=== PATIENT | female | born 1940 | race Caucasian/White ===

== ENCOUNTER 2018-04-20 19:53 | Emergency (ER) | payer MEDICARE, OTHER ==
[~2018-04-20] VITALS: Ht 165.1 cm; Wt 68.0 kg
[2018-04-20] MEDS ORDERED: ACETAMINOPHEN 325 MG TAB PO ONE (22:00)
--- NOTE | 2018-04-20 22:10 | Diagnostic Imaging Report ---
HIP 2 VIEW LT - HOPD HISTORY: Left hip pain COMPARISON: None FINDINGS: Bones: Patient is status post total left hip replacement with no evidence of hardware failure or loosening. Diffuse demineralization. No displaced fracture. Osseous alignment is within normal limits. Joints: The joint spaces are well-maintained. Soft tissues: The soft tissues appear unremarkable. IMPRESSION: No acute radiographic abnormality. Signed by: Dr. Bear Osborne M.D. on 04/20/2018 10:07 PM
--- NOTE | 2018-04-20 22:12 | Diagnostic Imaging Report ---
SHOULDER 2+VW LT -HOPD HISTORY: Left shoulder pain COMPARISON: None FINDINGS: Bones: No displaced fracture. Osseous alignment is within normal limits. Joints: There is moderate degenerative changes of the left acromioclavicular and severe changes of the glenohumeral joint with subchondral sclerosis and subchondral cystic changes. There is narrowing of the acromiohumeral interval Soft tissues: The soft tissues appear unremarkable. IMPRESSION: 1. No acute radiographic abnormality. 2. 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 Signed by: Dr. Bear Osborne M.D. on 04/20/2018 10:08 PM
--- NOTE | 2018-04-20 22:41 | Diagnostic Imaging Report ---
EXAMINATION: RIBS UNILAT W/CXR- HOPD INDICATION: Left side chest pain, rib pain. COMPARISON: None FINDINGS: TUBES and LINES: Cervical spine fusion status post laminectomies. Wiring overlying the mid abdomen most likely from spinal decompression of the upper lumbar spine LUNGS: Lungs are well inflated. Lungs are clear. There is no evidence of pneumonia or pulmonary edema. PLEURA: No pleural effusion or pneumothorax. HEART AND MEDIASTINUM: The cardiomediastinal silhouette is unremarkable. BONES AND SOFT TISSUES: No acute osseous lesion. Evidence of prior vertebroplasty at T12 and cervical and lumbar laminectomies Soft tissues are unremarkable. UPPER ABDOMEN: No free air under the diaphragm. IMPRESSION: No acute thoracic abnormality. Signed by: Dr. Bear Osborne M.D. on 04/20/2018 10:38 PM
[2018-04-20] MEDS ORDERED: CLONIDINE HCL 0.1 MG TAB PO ONE (22:45)
== END 2018-04-20 23:22 | disposition home or self-care (01) ==
LOC: FSED 19:53
DX: M25.512 Pain in left shoulder (principal); S40.012A Contusion of left shoulder, initial encounter; S20.212A Contusion of left front wall of thorax, initial encounter; S51.802A Unspecified open wound of left forearm, initial encounter; W01.0XXA Fall on same level from slipping, tripping and stumbling without subsequent striking against object, initial encounter; Y93.01 Activity, walking, marching and hiking; Y92.008 Other place in unspecified non-institutional (private) residence as the place of occurrence of the external cause; I10 Essential (primary) hypertension
CPT/HCPCS: 71101; 81003; 99283

== ENCOUNTER 2018-11-27 19:53 | Emergency (ER) | payer MEDICARE ==
[~2018-11-27] VITALS: Ht 165.1 cm; Wt 68.0 kg
--- OUTSIDE RECORDS SUMMARY | 2018-11-27 19:57 | XMS REPORT ---
Author Author [facility] Address Unknown Phone Unavailable Care Team Providers Care Rn Urgent Care Name Role Phone Dejan TYSON Unavailable Unavailable Problems This patient has no known problems. Allergies, Adverse Reactions, Alerts This patient has no known allergies or adverse reactions. Medications This patient has no known medications. Results Test Description Test Time Test Comments Text Results Atomic Results Result Comments RIBS UNILAT W/CXR- HOPD 2018-04-20 22:36:00 [facility] [address] [place] [address] Patient Name: VANDANA AMANDA MR #: [id number] : 1940 Age/Sex: 78/F Req #: [id number] Adm Physician: Ordered by: JONNATHAN TYSON MD Report #: [id number] Location: [facility] [place] Room/Bed: Procedure: [id number] HOPD/RIBS UNILAT W/CXR- HOPD Exam Date: 04/20/18 Exam Time: 2124 REPORT STATUS: Signed EXAMINATION: RIBS UNILAT W/CXR- HOPD INDICATION: Left side chest pain, rib pain. COMPARISON: None FINDINGS: TUBES and LINES: Cervical spine fusion status post laminectomies. Wiring overlying the mid abdomen most likely from spinal decompression of the upper lumbar spine LUNGS: Lungs are well inflated. Lungs are clear. There is no evidence of pneumonia or pulmonary edema. PLEURA: No pleural effusion or pneumothorax. HEART AND MEDIASTINUM: The cardiomediastinal silhouette is unremarkable. BONES AND SOFT TISSUES: No acute osseous lesion. Evidence of prior vertebroplasty at T12 and cervical and lumbar laminectomies Soft tissues are unremarkable. UPPER ABDOMEN: No free air under the diaphragm. IMPRESSION: No acute thoracic abnormality. Signed by: Dr. Bear Osborne M.D. on 04/20/2018 10:38 PM Dictated By: BEAR RUSSO MD 37 Transcribed By: TAJ on 04/20/182237 COPY TO: JONNATHAN TYSON MD SHOULDER 2+VW LT -HOPD 2018-04-20 22:07:00 [place] [address] Patient Name: VANDANA AMANDA MR #: [id number] : 1940 Age/Sex: 78/F Req #: [id number] Adm Physician: Ordered by: JONNATHAN TYSON MD Report #: [id number] Location: [facility] [place] Room/Bed: Procedure: [id number] HOPD/SHOULDER 2+VW LT -HOPD Exam Date: 04/20/18 Exam Time: 2134 REPORT STATUS: Signed SHOULDER 2+VW LT -HOPD HISTORY: Left shoulder pain COMPARISON: None FINDINGS: Bones: No displaced fracture. Osseous alignment is within normal limits. Joints: There is moderate degenerative changes of the left acromioclavicular and severe changes of the glenohumeral joint with subchondral sclerosis and subchondral cystic changes. There is narrowing of the acromiohumeral interval Soft tissues: The soft tissues appear unremarkable. IMPRESSION: 1. No acute radiographic abnormality. 2. 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 Signed by: Dr. Bear Osborne M.D. on 04/20/2018 10:08 PM Dictated By: BEAR RUSSO MD 07 Transcribed By: TAJ on 04/20/182207 COPY TO: JONNATHAN TYSON MD HIP 2 VIEW LT - HOPD 2018-04-20 22:07:00 [place] [address] Patient Name: VANDANA AMANDA MR #: [id number] : 1940 Age/Sex: 78/F Req #: [id number] Adm Physician: Ordered by: JONNATHAN TYSON MD Report #: [id number] Location: [facility] [place] Room/Bed: Procedure: [id number] HOPD/HIP 2 VIEW LT - HOPD Exam Date: 04/20/18 Exam Time: 2109 REPORT STATUS: Signed HIP 2 VIEW LT - HOPD HISTORY: Left hip pain COMPARISON: None FINDINGS: Bones: Patient is status post total left hip replacement with no evidence of hardware failure or loosening. Diffuse demineralization. No displaced fracture. Osseous alignment is within normal limits. Joints: The joint spaces are well-maintained. Soft tissues: The soft tissues appear unremarkable. IMPRESSION: No acute radiographic abnormality. Signed by: Dr. Bear Osborne M.D. on 04/20/2018 10:07 PM Dictated By: BEAR RUSSO MD 06 Transcribed By: TAJ on 04/20/182206 COPY TO: JONNATHAN TYSON MD
[2018-11-27] MEDS ORDERED: ALBUTEROL/IPRATROPIUM 3 ML NEB NEB ONE (20:45)
[2018-11-27] MEDS ORDERED: PREDNISONE 20 MG TAB PO ONE (20:45)
[2018-11-27] MEDS ORDERED: PROAIR HFA INH8.5 GM INH (22:02)
[2018-11-27] MEDS ORDERED: DOXYCYCLINE MO100 MG PO (22:04)
[2018-11-27] MEDS ORDERED: PREDNISONE20 MG PO (22:05)
== END 2018-11-27 22:20 | disposition home or self-care (01) ==
LOC: FSED 19:53
DX: J20.9 Acute bronchitis, unspecified (principal); I10 Essential (primary) hypertension; M54.5 Low back pain; G89.29 Other chronic pain
CPT/HCPCS: 99283; J7512

== ENCOUNTER 2019-07-19 16:15 | Emergency (ER) | payer MEDICARE ==
[~2019-07-19] VITALS: Ht 162.6 cm; Wt 54.1 kg
[~2019-07-19 16:15] MED LIST: DOXYCYCLINE MO100 MG PO; PREDNISONE20 MG PO; PROAIR HFA INH8.5 GM INH
[2019-07-19] MEDS ORDERED: SODIUM CHLORIDE 0.9% 50ML 50 ML ONE (16:29)
[2019-07-19] MEDS ORDERED: IOPAMIDOL 370 MG/ML 200 ML INFUS..BTL INJ ONE (16:29)
[2019-07-19] MEDS ORDERED: ONDANSETRON HCL INJ 2MG/ML 2ML 2 MG/ML VIAL IV STA (16:55)
[2019-07-19] MEDS ORDERED: ONDANSETRON HCL INJ 2MG/ML 2ML 2 MG/ML VIAL ONE (17:03)
--- NOTE | 2019-07-19 18:21 | Diagnostic Imaging Report ---
EXAM: CT Abdomen and Pelvis WITH contrast INDICATION: Abdominal pain. Diarrhea. COMPARISON: None. TECHNIQUE: Abdomen and pelvis were scanned utilizing a multidetector helical scanner from the lung base to the pubic symphysis after administration of IV contrast. Coronal and sagittal reformations were obtained. Routine protocol was performed. Scan was performed when during portal venous phase. IV CONTRAST: 100 cc Isovue-300 ORAL CONTRAST: Water RADIATION DOSE: Total DLP: 462.62 mGy*cm Estimated effective dose: (DLP x 0.015 x size factor) mSv COMPLICATIONS: None FINDINGS: LINES and TUBES: None. LOWER THORAX: Unremarkable HEPATOBILIARY: No focal hepatic lesions. Diffuse pneumobilia. GALLBLADDER: Not visualized. SPLEEN: No splenomegaly. PANCREAS: No focal masses or ductal dilatation. ADRENALS: No adrenal nodules KIDNEYS/URETERS: Kidneys enhance symmetrically. No hydronephrosis. Parapelvic cyst in the interpolar region of the left kidney measuring 4.1 cm. There is also a 1.7 cm low-attenuation lesion in the upper pole of the right kidney which demonstrate above than water attenuation. 5 cm low-attenuation lesion in the upper pole of the left kidney demonstrate above than water attenuation. In addition, a 1.6 cm lesion in the lower pole of the right kidney anteriorly also demonstrate above than water attenuation. This lesions could represent hyperdense cyst, however, not completely evaluated in this single phase scan. No stones. GI TRACT: Evaluation limited due to the lack of oral contrast. No bowel dilatation to suggest obstruction. There is mild wall thickening of the ascending colon to the level of the hepatic flexure. There is a moderate volume of stool within the colon. The appendix is not identified, however, there is no CT evidence of acute appendicitis. PELVIC ORGANS/BLADDER: Unremarkable. LYMPH NODES: No lymphadenopathy. VESSELS: There is moderate atherosclerotic disease in the aorta and major arterial branches. PERITONEUM / RETROPERITONEUM: No free air or fluid. Increased density of the mesenteric fat in the right lower quadrant anteriorly as seen on image 44, associated with mildly prominent lymph nodes. BONES: Multilevel severe degenerative changes of the thoracolumbar spine, particularly at L1-L2. Compression fractures of T11-T12 status post kyphoplasty. Prior laminectomies at L3-L4 and L4-L5. Neurostimulator or bone stimulator lead partially visualized. Bipolar left hip prosthesis SOFT TISSUES: Unremarkable. IMPRESSION: 1. Findings may reflect mild ascending colitis. No abscess formation. 2. Diffuse pneumobilia may reflect prior sphincterotomy or prior surgery not well evaluated in this examination. An enterobiliary fistula could result in a similar finding in the proper setting. 3. Bilateral indeterminate renal lesions demonstrate above than water attenuation. Recommend further evaluation with nonemergent CT or MRI abdomen renal mass protocol. Signed by: Dr. Jaxson Valera M.D. on 07/19/2019 6:17 PM
[2019-07-19] MEDS ORDERED: ONDANSETRON HCL INJ 2MG/ML 2ML 2 MG/ML VIAL IV NR (18:45)
[2019-07-19 18:46] VITALS: BP 145/69
== END 2019-07-19 18:58 | disposition home or self-care (01) ==
LOC: FSED 16:15
DX: R10.13 Epigastric pain (principal); R11.0 Nausea; K52.9 Noninfective gastroenteritis and colitis, unspecified
CPT/HCPCS: 74177; 80048; 80076; 81003; 82553; 84484; 85025; 93005; 96374; 99284; J2405; Q9967

== ENCOUNTER → 2020-02-20 | Outpatient (CLI) | payer MEDICARE ==
[~2020-02-20] MED LIST changes: +IOPAMIDOL 370 MG/ML 200 ML INFUS..BTL INJ ONE
[2020-02-20 17:33] LABS: BLOOD UREA NITROGEN 22 mg/dL (7-26); BUN/CREATININE RATIO 27 (6-25); CREATININE, SERUM 0.83 mg/dL (0.57-1.11); EST GLOMERULAR FILTRATION RATE > 60 ML/MIN (60-)
--- NOTE | 2020-02-20 21:06 | Diagnostic Imaging Report ---
EXAMINATION: CT of the abdomen and pelvis with contrast. TECHNIQUE: Spiral CT images of the abdomen and pelvis were performed from the lung bases to the lesser trochanters after the intravenous administration of 100 cc of Isovue 370 and the oral administration of water. Coronal and sagittal reformatted images were obtained. COMPARISON: CT abdomen and pelvis 07/19/2019 CLINICAL HISTORY:Post colonoscopy, colitis, abdominal pain for a few days, right lower quadrant abdominal pain. DISCUSSION: ABDOMEN/PELVIS: LOWER THORAX:Ill-defined 5 mm groundglass nodule in the left lower lobe (series 2, image 6). Atherosclerotic calcification of the aortic valves, coronary arteries and thoracic aorta. HEPATOBILIARY: No focal hepatic lesions. Stable mild central intrahepatic biliary ductal dilation. Stable mild dilation of the common bile duct, which measures approximately 8.5 mm at the chas hepatis. GALLBLADDER: Not visualized SPLEEN: No splenomegaly. PANCREAS: No focal masses or ductal dilatation. Marked pancreatic atrophy ADRENALS: No adrenal nodules. KIDNEYS/URETERS: Symmetrical renal enhancement. No renal or ureteral calculi, hydronephrosis or obstruction. Stable 4.0 cm fluid density simple cyst in the left interpolar region (series 2, image 30) Stable left superior pole 1.5 cm and right inferior pole 1.5 cm hypodense lesions which do not measure simple fluid. The left superior pole lesion has thin internal septations. No solid enhancing masses. PELVIC ORGANS/BLADDER: Evaluation of the pelvis is limited by beam hardening artifact from left hip prosthesis. Visualized bladder is unremarkable. No adnexal masses. PERITONEUM/RETROPERITONEUM: No free air or fluid. LYMPH NODES: No intra-abdominal, retroperitoneal, pelvic or inguinal lymphadenopathy. VESSELS: The celiac trunk,superior and inferior mesenteric and bilateral renal arteries are patent The portal, superior mesenteric and splenic veins are patent. Marked atherosclerotic calcification of the abdominal aorta. GI TRACT: No bowel dilation or evidence of obstruction. No pericolonic inflammatory changes. Moderate retained stool in the colon. No definite wall thickening. The appendix is not visualized, however, no periappendiceal or pericecal inflammatory changes/fat stranding are identified. 1.3 cm oval-shaped hyperdensity in the ascending colon likely represents undigested pill material. BONES AND SOFT TISSUE: No aggressive lytic or suspicious focal sclerotic lesions. Diffuse osteopenia. Multilevel marked degenerative changes of the thoracolumbar spine, worse at L1-L2. Vertebroplasty changes at T11 and T12. Left hip prosthesis. Multiple calcified injection granulomas in bilateral gluteal regions. IMPRESSION: 1. No acute abdominopelvic abnormalities. No bowel dilation or evidence of obstruction. No pericolonic inflammatory changes. Although the appendix is not visualized, no regional inflammatory changes to suggest appendicitis. 2. Moderate retained stool in the colon suggesting constipation. 3. Stable size of 2 indeterminate lesions in the right and left kidney, as described. Although these may represent hemorrhagic cyst, these lesions cannot be fully evaluated in this single phase exam. Recommend CT abdomen with renal mass protocol for further evaluation. 4. Stable mild central intrahepatic biliary ductal dilation and mild dilation of the common bile duct, likely reflecting postcholecystectomy status. 5. Ill-defined 5 mm groundglass nodule in the left lower lobe. If patient is low risk, no further follow-up is indicated per Fleischner Society 2017 guidelines. Signed by: Dr. Darrel Jacobs M.D. on 02/20/2020 9:03 PM
== END ==
LOC: CT 16:06
PROVIDERS: ATTEND Internal Medicine Gastroenterology
DX: R10.11 Right upper quadrant pain (principal); R10.31 Right lower quadrant pain
CPT/HCPCS: 36415; 74177; 82565; 84520; Q9967

== ENCOUNTER → 2020-04-08 | Day surgery (SDC) | payer MEDICARE, OTHER ==
[2020-04-05 10:26] LABS: BASOPHILS % 0.4 % (0.0-1.0); EOSINOPHILS # (AUTO) 0.4 (0.0-0.4); EOSINOPHILS % 5.6 % (0.0-6.0); HEMATOCRIT 36.6 % (34.2-44.1); HEMOGLOBIN 12.1 g/dL (12.0-16.0); LYMPHOCYTES # (AUTO) 1.5 (1.0-3.2); LYMPHOCYTES % 21.2 % (18.0-39.1); MEAN CORPUSCULAR HEMOGLOBIN 30.5 pg (28-32); MEAN CORPUSCULAR HGB CONC 33.1 g/dL (31-35); MEAN CORPUSCULAR VOLUME 92.2 fL (81-99); MONOCYTES # (AUTO) 0.6 (0.2-0.8); MONOCYTES % 8.3 % (4.4-11.3); NEUTROPHILS # (AUTO) 4.5 (2.1-6.9); NEUTROPHILS % 64.2 % (38.7-80.0); PLATELET COUNT 229 x10e3/uL (140-360); RED BLOOD COUNT 3.97 x10e6/uL (3.6-5.1); RED CELL DISTRIBUTION WIDTH 11.8 % (11.7-14.4)
[~2020-04-08] MED LIST changes: +AMITIZA24 MCG PO; +BREO ELLIPTA 11 EACH INH; +BUSPIRONE HCL5 MG PO; +BUTRANS1 EAC2 TOP; +ETOMIDATE 40 MG/ 20ML VIAL IV ONE; +FUROSEMIDE40 MG PO; -IOPAMIDOL 370 MG/ML 200 ML INFUS..BTL INJ ONE; +LABETALOL HCL200 MG PO; +LIDOCAINE HCL 2% LOCAL INJ 5 ML SDV VIAL INJ ONE; +LOSARTAN-HCTZ1 EAC1 PO; +NORCO 10-325 T1 EACH PO; +OMEPRAZOLE20 MG PO; +ONDANSETRON ODT8 MG PO; +ONDANSETRON2 MG/1 ML PO; +PROPOFOL IV EMULSION 10 MG/ML 20 ML VIAL ONE
[2020-04-08 09:20] VITALS: BP 161/80
--- NOTE | 2020-04-08 13:23 | Operative Report ---
DATE OF PROCEDURE: 04/08/2020 SURGEON: Carlos Wyman MD PROCEDURE PERFORMED: Esophagogastroduodenoscopy. PREOPERATIVE DIAGNOSIS: Persistent nausea. POSTOPERATIVE DIAGNOSES: Fungal esophagitis, hiatal hernia, gastritis, and gastroparesis. PREOPERATIVE MEDICATIONS: Consisted of MAC. DESCRIPTION OF PROCEDURE: Using Olympus Telekenex video gastroscope was inserted in the patient's oropharynx advanced to hypopharynx and down to the esophagus. There seemed to be small white plaques in the upper esophagus and hypopharynx region suggesting maybe a fungal infection. The mid and lower esophagus appeared to be normal. There was a hiatal hernia present, which is a sliding type from 36-37 cm. The stomach was entered and insufflated with air. The mucosa of the cardia, fundus, body, and antrum was viewed. There was evidence of gastritis down in the body and antrum, but no ulcerations. The biopsies obtained and sent to the lab for H. Pylori infection. The pylorus was visualized and entered. The duodenal bulb, postbulbar duodenum were found to be within normal limits. The endoscope was then withdrawn back up into the stomach where it was noted that there was no motility. After observing for several minutes, still no contractions at all. The endoscope was then withdrawn back up into the esophagus, hypopharynx, oropharynx and out of the patient's mouth and the procedure was ended. In conclusion, we have findings of a fungal esophagitis, hiatal hernia, gastritis and gastroparesis. Carlos Wyman MD SAF/MODL /[id number]
== END | disposition home or self-care (01) ==
LOC: OR 06:20
PROVIDERS: ATTEND Internal Medicine Gastroenterology
DX: K29.50 Unspecified chronic gastritis without bleeding (principal); K31.84 Gastroparesis; K20.8 Other esophagitis; B48.8 Other specified mycoses; K44.9 Diaphragmatic hernia without obstruction or gangrene; R93.3 Abnormal findings on diagnostic imaging of other parts of digestive tract; K59.04 Chronic idiopathic constipation; R63.0 Anorexia; J44.9 Chronic obstructive pulmonary disease, unspecified; I25.10 Atherosclerotic heart disease of native coronary artery without angina pectoris; I10 Essential (primary) hypertension; I11.0 Hypertensive heart disease with heart failure; I50.9 Heart failure, unspecified; F41.9 Anxiety disorder, unspecified; Z01.810 Encounter for preprocedural cardiovascular examination; Z01.812 Encounter for preprocedural laboratory examination; Z11.59 Encounter for screening for other viral diseases; Z80.0 Family history of malignant neoplasm of digestive organs
CPT/HCPCS: 36415; 43239; 85025; 93005; J2001; J2704; U0002

== ENCOUNTER 2020-04-16 14:17 | Emergency (ER) | payer MEDICARE, OTHER ==
[~2020-04-16] VITALS: Ht 160 cm; Wt 54.4 kg
[~2020-04-16 14:17] MED LIST changes: -ETOMIDATE 40 MG/ 20ML VIAL IV ONE; -LIDOCAINE HCL 2% LOCAL INJ 5 ML SDV VIAL INJ ONE; -ONDANSETRON ODT8 MG PO; -PROPOFOL IV EMULSION 10 MG/ML 20 ML VIAL ONE
--- NOTE | 2020-04-16 15:01 | Emergency Department Note ---
History of Present Illnes History of Present Illness Chief Complaint: abdominal pain History of Present Illness This is an 80 year old female, with a history of hypertension, CHF, remote OK, osteoarthritis, chronic neck and back pain for which she takes narcotics daily, who presents with a 3 week history of progressively worsening abdominal pain. Patient states that the abdominal pain seems worse today, as does the nausea, and she states she also feels "generally weak." Patient was seen at her GI doctor's office yesterday, Dr. Wyman, by one of the providers there, where she was placed on Cipro for a "possible intestinal infection," and she was also prescribed Linzess, for constipation. Patient has not yet started the Linzess. Patient states that her last bowel movement was 5 days ago, and that she has been passing a scant amount of small "pellet-like stool." She denies any fever, chills, vomiting, dysuria, frequency, urgency, or upper respiratory symptoms. Patient had an EGD, performed by Dr. Wyman on 04/08/2020 which revealed "fungal esophagitis, hiatal hernia, gastritis, and gastroparesis." Patient states that she was prescribed medication for fungus, which she took for 5 days, and has completed. Patient also had a negative Covid test prior to the procedure. Of significance, patient takes Vicodin daily, every 6 hours, as needed for pain, and she was recently started on a Buprenorphine patch 10 mcg/hr q 7 days, for her chronic pain. She has been wearing the patch for the past week. Her current patch has been in place x 2 days. 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 Onset (how long ago): week(s) (3) Location: generalized abdomen Quality: aching, cramping Radiation: Reports non-radiation Severity: severe Onset quality: gradual Duration (how long): week(s) (3) Timing of current episode: constant Progression: worsening Chronicity: new Context: Reports new medications (Buprenorphine pain patch x 9 days); Denies recent surgery, Denies trauma/injury Relieving factors: none Exacerbating factors: none Associated symptoms: Reports loss of appetite, Reports nausea/vomiting (no vomiting), Reports weakness; Denies chest pain, Denies cough, Denies fever/chills, Denies rash, Denies shortness of breath Treatments prior to arrival: none Risk factors: age, chronic narcotic use Past Medical/Family History Physician Review I have reviewed the patient's past medical and family history. Any updates have been documented here. Past Medical History Recent Fever: No Clinical Suspicion of Infectio: No New/Unexplained Change in Ment: No Past Medical History: Hypertension, COPD, CHF, GERD Other Medical History: Chronic pain and sees a pain mgmt doctor Past Surgical History: Cholecysctectomy, Back Surgery Other Surgery: neck surgery Social History Smoking Cessation: Never Smoker Alcohol Use: None Any Illegal Drug Use: No TB Exposure/Symptoms: No Physically hurt or threatened: No Family History Family history of heart diseas: Yes Other Last Tetanus: UTD Any Pre-Existing Lines (PICC,: No Is patient up to date on immun: Yes Review of Systems Review of Systems Constitutional: Reports malaise; Denies chills, Denies fever, Denies weakness EENTM: Reports no symptoms Cardiovascular: Denies chest pain, Denies edema, Denies palpitations, Denies syncope Respiratory: Reports no symptoms Gastrointestinal: Reports abdominal pain, Reports constipation (no BM x 5 days), Reports nausea; Denies vomiting Genitourinary: Denies dysuria, Denies frequency, Denies hematuria Musculoskeletal: Reports back pain (chronic), Reports muscle pain, Reports neck pain (chronic); Denies muscle stiffness Integumentary: Reports no symptoms Neurological: Reports no symptoms Psychological: Reports no symptoms Hematological/Lymphatic: Reports no symptoms Review of other systems: All other systems negative Physical Exam Related Data Allergies: Coded Allergies: No Known Drug Allergies (Verified Allergy, Unknown, 09/27/09) Vital signs reviewed: Yes Physical Exam CONSTITUTIONAL Constitutional: Present well-developed, Present well-nourished; Absent distressed, Absent ill appearing HENT HENT: Present normocephalic, Present atraumatic, Present oropharynx clear/moist, Present nose normal HENT L/R: Present left ext ear normal, Present right ext ear normal EYES Eyes: Reports PERRL, Reports conjunctivae normal NECK Neck: Present ROM normal, Present supple; Absent JVD, Absent cervical adenopathy PULMONARY Pulmonary: Present effort normal, Present breath sounds normal CARDIOVASCULAR Cardiovascular: Present regular rhythm, Present heart sounds normal, Present capillary refill normal, Present normal rate GASTROINTESTINAL Abdominal: Present soft, Present nontender, Present bowel sounds normal GENITOURINARY Genitourinary: Present exam deferred SKIN Skin: Present warm, Present dry; Absent erythema, Absent rash MUSCULOSKELETAL Musculoskeletal: Present ROM normal; Absent swelling NEUROLOGICAL Neurological: Present alert, Present oriented x 3, Present no gross motor or sensory deficits; Absent cranial nerve deficit PSYCHOLOGICAL Psychological: Present mood/affect normal, Present judgement normal Results Laboratory Laboratory CBC - nl WBC, H/H = 11.6/36.4; CMP - CL - 93, BUN = 28; Cardiacs - CKMB - 4.8; Brian - 199; Trop - nl; UA - negative; Lab results reviewed: Yes Imaging Imaging results reviewed: Yes Impressions [place] [id number] Patient Name: VANDANA AMANDA MR #: [id number] : 1940 Age/Sex: 80/F Req #: [id number] Adm Physician: Ordered by: JONNATHAN TYSON MD Report #: [id number] Location: [facility] Room/Bed: Procedure: [id number] HOPD/CT ABD/PEL WO CONTRAST-HOPD Exam Date: 04/16/20 Exam Time: 1551 REPORT STATUS: Signed EXAM: CT Abdomen and Pelvis WITHOUT contrast INDICATION: Abdominal pain. COMPARISON: CT of the abdomen and pelvis on 02/10/2020 and 07/19/2019. TECHNIQUE: Abdomen and pelvis were scanned utilizing a multidetector helical scanner from the lung base to the pubic symphysis without administration of IV contrast. Absence of intravenous contrast decreases sensitivity for detection of focal lesions and vascular pathology. Coronal and sagittal reformations were obtained. Routine protocol was performed. IV CONTRAST: None ORAL CONTRAST: None COMPLICATIONS: None RADIATION DOSE: Total DLP: 372.39 mGy*cm Estimated effective dose: (DLP x 0.015 x size factor) mSv CTDIvol has been reviewed. It is below the limits set by the Radiation Protocol Committee (RPC). Dose modulation, iterative reconstruction, and/or weight based adjustment of the mA/kV was utilized to reduce the radiation dose to as low as reasonably achievable. FINDINGS: LINES and TUBES: None. LOWER THORAX: Partially imaged 5 mm nodule in the left lower lobe is unchanged. There is atherosclerotic ossification of the coronary vessels. HEPATOBILIARY: No focal hepatic lesions. No biliary ductal dilation. GALLBLADDER: Not visualized, likely surgically absent. SPLEEN: No splenomegaly. PANCREAS: No focal masses or ductal dilatation. ADRENALS: No adrenal nodules KIDNEYS/URETERS: No hydronephrosis. Multiple bilateral cysts are unchanged. No stones. GI TRACT: There are multiple round and oval-shaped hyperdensities in the distal small bowel and throughout the colon particularly in the cecum which most likely represent ingested pills. No abnormal distention, wall thickening, or evidence of bowel obstruction. The appendix is not visualized in isolation, however there are no secondary signs of appendicitis. PELVIC ORGANS/BLADDER: Evaluation of the pelvic structures is limited by beam hardening artifact from left hip prosthesis. The visualized bladder and pelvic structures are unchanged. LYMPH NODES: No lymphadenopathy. VESSELS: The abdominal aorta and its major abdomen and pelvic branches have normal caliber with marked atherosclerotic calcification. PERITONEUM / RETROPERITONEUM: No free air or fluid. BONES: The bones are diffusely osteopenic. There is multilevel degenerative changes of the thoracolumbar spine. There are vertebroplasty changes at T11 and T12. Left hip prosthesis unchanged. Multiple calcified granulomas in the bilateral gluteal region are unchanged. SOFT TISSUES: Unremarkable. IMPRESSION: 1. No acute abdominopelvic abnormality identified. No evidence of bowel obstruction or inflammation. 2. Multiple round and oval shaped hyperdensities in the distal small bowel and throughout the colon, particularly in the cecum which most likely represents ingested pills. Consider medication reconsideration to evaluate the amount of pills patient usually ingests. 3. No interval change in partially imaged groundglass nodule in the left lower lobe. If patient is high risk for lung cancer, consider follow-up chest CT in 12 months. Signed by: Maria Antonia Castro MD on 04/16/2020 4:47 PM Dictated By: MARIA ANTONIA CASTRO MD 46 Transcribed By: TAJ on 04/16/201646 COPY TO: JONNATHAN TYSON MD~ Diagnostics Tests Diagnostic test(s) reviewed: Yes Procedures 12 Lead ECG Interpretation ECG Interpretation : ECG: ECG 1 Production Associate: Interpreted by ED physician Date: Apr 16, 2020 Time: 16:16 Prior ECG tracings: not available for review Rhythm: sinus rhythm Rate: normal BPM: 64 QRS axis: normal ST segments normal: Yes Clinical Impression: normal ECG Assessment & Plan Medical Decision Making MDM Discussed with patient results of her lab work and CT scan of the abdomen and pelvis. Her lab work did not show any sign of infection, she has mild anemia, and normal liver and kidney function. Urinalysis was negative. CT of the abdomen and pelvis revealed "no acute abdominopelvic abnormality. There were multiple round and oval shaped hyperdensities in the distal small bowel and throughout the colon, particular the cecum, which likely represents ingested pills." There is also a "stable groundglass nodule in the left lower lobe that was seen on previous CT scan." Since daughter states that patient's primary care is aware of this nodule, and the need for follow-up CT scan in 12 months. - Explained that the patient done today, does NOT show any evidence of diverticulitis or bowel obstruction. There is really no clear cut etiology to her pain. I discussed with both patient and daughter, that it is likely multifactorial, and that she has significant gastroparesis, as evidenced by the multiple pill fragments that seemed to be slowly moving down the small bowel, and she is also taking narcotics orally on a daily basis and she was recently started on a Buprenorphine Garcias, both of which can further slow gastric motility, which would contribute to her nausea. - Patient was offered admission to the hospital, to further evaluate the etiology of her symptoms, but she declined, and she would like to try management of the constipation at home, as she feels that if she has a bowel movement that her symptoms will improve. Patient was previously on MiraLAX, but this was discontinued as she thought that it might be adversely affecting patient's stomach. Patient stopped the MiraLAX, but her abdominal pain has remained unchanged. Therefore, I think it safe for her to resume the MiraLAX, which she states DID work previously to help her evacuate her bowels. Due to her chronic pain, patient is unable to just stop the pain medication, as the pain significantly decreases her quality of life. - Resume the MIRALAX, to help relieve constipation. - STOP the Cipro, since you DO NOT have diverticulitis. - STOP all vitamins and supplements, until nausea and abdominal pain have resolved. - Recommend a BLAND diet, avoiding fried, fatty, fast, and spicy foods. - Follow-up with Dr. Wyman on 04/19/2020, regarding this ER visit and further treatment of GASTROPARESIS and abdominal pain. Attempted to contact Dr. Wyman, through his office, but there was no way to reach him directly, through following the phone tree. - Return to the ER, if your abdominal pain worsens, or if you develop a fever, vomiting or increased weakness. The patient and daughter voiced understanding of the plan. Patient lives with each of her two daughters, and alternates which one she lives with each month. Assessment & Plan Final Impression: (1) Abdominal pain (2) Nausea (3) Gastroparesis (4) Constipation (5) Hypertension (6) Chronic narcotic use (7) Pulmonary nodule, left Depart Disposition: HOME, SELF-correction Meds Active Scripts Ondansetron (ONDANSETRON ODT) 8 Mg Tab.rapdis, 1 TAB PO Q8H PRN for nausea, #30 TAB 0 Refills Prov:JONNATHAN TYSON MD 04/16/20 Albuterol Sulf* (PROAIR HFA INHALER*) 8.5 Gm Inh, 2 PUMP INH Q4HR for cough and wheezing, #1 INH 0 Refills Prov:JONNATHAN TYSON MD 11/27/18 Reported Medications Buprenorphine (BUTRANS) 1 Each Patch.tdwk, 1 PATCH TOP WEEKLY 04/08/20 Ondansetron Hcl (ONDANSETRON HCL) 2 Mg/1 Ml Vial, 4 MG PO PRN, VIAL 04/02/20 Omeprazole (OMEPRAZOLE) 20 Mg Capsule.dr, 20 MG PO DAILY 04/02/20 Furosemide (FUROSEMIDE) 40 Mg Tablet, 20 MG PO BID, #30 TAB 04/02/20 Lubiprostone (AMITIZA) 24 Mcg Capsule, 24 MCG PO BID, #60 CAP 04/02/20 Losartan/Hydrochlorothiazide (LOSARTAN-HCTZ 100-25 MG TAB) 1 Each Tablet, MG PO DAILY 04/02/20 Hydrocodone Bit/Acetaminophen (NORCO 10-325 TABLET) 1 Each Tablet, 1 TAB PO TID, TAB 04/02/20 Labetalol Hcl (LABETALOL HCL) 200 Mg Tablet, 200 MG PO TID, #60 TAB 04/02/20 Buspirone Hcl (BUSPIRONE HCL) 5 Mg Tablet, 15 MG PO TID, #60 TAB 04/02/20 Fluticasone/Vilanterol (Breo Ellipta 100-25 Mcg INH) 1 Each Blst.w.dev, 1 SPR INH DAILY 04/02/20 JONNATHAN TYSON MD Apr 16, 2020 15:01
[2020-04-16] MEDS ORDERED: ONDANSETRON HCL INJ 2MG/ML 2ML 2 MG/ML VIAL IV STA (15:31)
[2020-04-16] MEDS ORDERED: FAMOTIDINE 20 MG/2 ML VIAL IV STA (15:36)
[2020-04-16] MEDS ORDERED: ONDANSETRON HCL INJ 2MG/ML 2ML 2 MG/ML VIAL ONE (15:43)
[2020-04-16] MEDS ORDERED: FAMOTIDINE 20 MG/2 ML VIAL IV ONE (15:43)
--- OUTSIDE RECORDS SUMMARY | 2020-04-16 15:54 | XMS REPORT | Continuity of Care Document ---
Author Author [facility] t Organization [facility] Address [address] [place] [address] Phone Unavailable Care Team Providers Care Benefits Coordinator Name Role Phone ROHIT DELUCA, [facility] PCP KHARI ROSENBAUM Attphys Unavailable DO GREWAL Attphys Unavailable Dejan WAKEFIELD Attphyjacqueline Unavailable Payers Payer Name Policy Type Policy Number Effective Date Expiration Date S david [facility] [id number] 2019 00:00:00 [facility] Medicare Advantage [id number] 2018 00:00:00 [facility] Problems This patient has no known problems. Allergies, Adverse Reactions, Alerts This patient has no known allergies or adverse reactions. Medications Ordered Medication Name Filled Medication Name Start Date Stop Da te Current Medication? Ordering Clinician Indication Dosage Frequency Signature (SIG) Comments Components Source Albuterol Sulfate (Proair Hfa Inhaler*) 8.5 Gm Inh Alb uterol Sulfate (Proair Hfa Inhaler*) 8.5 Gm Inh 2018-11-27 00:00:00 Yes Eusebia Wakefield Md 2 Every 4 Hours for Cough And Wheezing [facility] Doxycycline Monohydrate 100 Mg Capsule Doxycycline Monohydra te 100 Mg Capsule 2018-11-27 00:00:00 Yes Eusebia Wakefield Md 1 Twice A Day for Infection [facility] Prednisone 20 Mg Tab Prednisone 20 Mg Tab 2018-11-27 00:00:00 Yes Eusebia Wakefield Md 2 Daily for Inflammation [facility] Procedures This patient has no known procedures. Encounters Start Date/Time End Date/Time Encounter Type Admission Type Attendi [facility] Care Department Encounter ID Source 2019-07-19 16:15:00 2019-07-19 18:58:00 Departed Emergency Room 1 DO GREWAL [facility] [id number] [facility] 2018-11-27 19:53:00 2018-11-27 22:20:00 Departed Emergency Room [facility] [id number] [facility] 2018-04-20 19:53:00 2018-04-20 23:22:00 Departed Emergency Room 1 EUSEBIA WAKEFIELD [facility] [id number] [facility] Results Test Description Test Time Test Comments Results Result Comments Source CT ABDOMEN/PELVIS W 2020-02-20 20:33:00 [place] [address] Patient Name: VANDANA AMANDA MR #: [id number] : 1940 Age/Sex: 79/F Req #: [id number] Adm Physician: Ordered by: KHARI ROSENBAUM MD Report #: [id number] Location: CT Room/Bed: Procedure: [id number] CT/CT ABDOMEN/PELVIS W Exam Date: 02/20/20 Exam Time: 1730 REPORT STATUS: Signed EXAMINATION: CT of the abdomen and pelvis with contrast. TECHNIQUE: Spiral CT images of the abdomen and pelvis were performed from the lung bases to the lesser trochanters after the intravenous administration of 100 cc of Isovue 370 and the oral administration of water. Coronal and sagittal reformatted images were obtained. COMPARISON: CT abdomen and pelvis 07/19/2019 CLINICAL HISTORY:Post colonoscopy, colitis, abdominal pain for a few days, right lower quadrant abdominal pain. DISCUSSION: ABDOMEN/PELVIS: LOWER THORAX:Ill-defined 5 mm groundglass nodule in the left lower lobe (series 2, image 6). Atherosclerotic calcification of the aortic valves, coronary arteries and thoracic aorta. HEPATOBILIARY: No focal hepatic lesions. Stable mild central intrahepatic biliary ductal dilation. Stable mild dilation of the common bile duct, which measures approximately 8.5 mm at the chas hepatis. GALLBLADDER: Not visualized SPLEEN: No splenomegaly. PANCREAS: No focal masses or ductal dilatation. Marked pancreatic atrophy ADRENALS: No adrenal nodules. KIDNEYS/URETERS: Symmetrical renal enhancement. No renal or ureteral calculi, hydronephrosis or obstruction. Stable 4.0 cm fluid density simple cyst in the left interpolar region (series 2, image 30) Stable left superior pole 1.5 cm and right inferior pole 1.5 cm hypodense lesions which do not measure simple fluid. The left superior pole lesion has thin internal septations. No solid enhancing masses. PELVIC ORGANS/BLADDER: Evaluation of the pelvis is limited by beam hardening artifact from left hip prosthesis. Visualized bladder is unremarkable. No adnexal masses. PERITONEUM/RETROPERITONEUM: No free air or fluid. LYMPH NODES: No intra-abdominal, retroperitoneal, pelvic or inguinal lymphadenopathy. VESSELS: The celiac trunk,superior and inferior mesenteric and bilateral renal arteries are patent The portal, superior mesenteric and splenic veins are patent. Marked atherosclerotic calcification of the abdominal aorta. GI TRACT: No bowel dilation or evidence of obstruction. No pericolonic inflammatory changes. Moderate retained stool in the colon. No definite wall thickening. The appendix is not visualized, however, no periappendiceal or pericecal inflammatory changes/fat stranding are identified. 1.3 cm oval-shaped hyperdensity in the ascending colon likely represents undigested pill material. BONES AND SOFT TISSUE: No aggressive lytic or suspicious focal sclerotic lesions. Diffuse osteopenia. Multilevel marked degenerative changes of the thoracolumbar spine, worse at L1-L2. Vertebroplasty changes at T11 and T12. Left hip prosthesis. Multiple calcified injection granulomas in bilateral gluteal regions. IMPRESSION: 1. No acute abdominopelvic ab normalities. No bowel dilation or evidence of obstruction. No pericolonic inflammatory changes. Although the appendix is not visualized, no regional inflammatory changes to suggest appendicitis. 2. Moderate retained stool in the colon suggesting constipation. 3. Stable size of 2 indeterminate lesions in the right and left kidney, as described. Although these may represent hemorrhagic cyst, these lesions cannot be fully evaluated in this single phase exam. Recommend CT abdomen with renal mass protocol for further evaluation. 4. Stable mild central intrahepatic biliary ductal dilation and mild dilation of the common bile duct, likely reflecting postcholecystectomy status. 5. Ill- defined 5 mm groundglass nodule in the left lower lobe. If patient is low risk, no further follow-up is indicated per Fleischner Society 2017 guidelines. Signed by: Dr. Tony Jacobs M.D. on 02/20/2020 9:03 PM Dictated By: TONY JACOBS MD 02 Transcribed By: TAJ on 02/20/202102 COPY TO: KHARI ROSENBAUM MD CT ABD/PEL WITH CONTRAST-HOPD 2019-07-19 17:50:00 [place] [address] Patient Name: VANDANA AMANDA MR #: [id number] : 1940 Age/Sex: 79/F Req #: [id number] Adm Physician: Ordered by: DO GREWAL DO Report #: [id number] [facility] Room/Bed: Procedure: [id number] HOPD/CT ABD/PEL WITH CONTRAST-HOPD Exam Date: 07/19/19 Exam Time: 1751 REPORT STATUS: Signed EXAM: CT Abdomen and Pelvis WITH contrast INDICATION: Abdominal pain. Diarrhea. COMPARISON: None. TECHNIQUE: Abdomen and pelvis were scanned utilizing a multidetector helical scanner from the lung base to the pubic symphysis after administration of IV contrast. Coronal and sagittal reformations were obtained. Routine protocol was performed. Scan was performed when during portal venous phase. IV CONTRAST: 100 cc Isovue-300 ORAL CONTRAST: Water RADIATION DOSE: Total DLP: 462.62 mGy*cm Estimated effective dose: (DLP x 0.015 x size factor) mSv COMPLICATIONS: None FINDINGS: LINES and TUBES: None. LOWER THORAX: Unremarkable HEPATOBILIARY: No focal hepatic lesions. Diffuse pneumobilia. GALLBLADDER: Not visualized. SPLEEN: No splenomegaly. PANCREAS: No focal masses or ductal dilatation. ADRENALS: No adrenal nodules KIDNEYS/URETERS: Kidneys enhance symmetrically. No hydronephrosis. Parapelvic cyst in the interpolar region of the left kidney measuring 4.1 cm. There is also a 1.7 cm low-attenuation lesion in the upper pole of the right kidney which demonstrate above than water attenuation. 5 cm low-attenuation lesion in the upper pole of the left kidney demonstrate above than water attenuation. In addition, a 1.6 cm lesion in the lower pole of the right kidney anteriorly also demonstrate above than water attenuation. This lesions could represent hyperdense cyst, however, not completely evaluated in this single phase scan. No stones. GI TRACT: Evaluation limited due to the lack of oral contrast. No bowel dilatation to suggest obstruction. There is mild wall thickening of the ascending colon to the level of the hepatic flexure. There is a moderate volume of stool within the colon. The appendix is not identified, however, there is no CT evidence of acute appendicitis. PELVIC ORGANS/BLADDER: Unremarkable. LYMPH NODES: No lymphadenopathy. VESSELS: There is mod erate atherosclerotic disease in the aorta and major arterial branches. PERITONEUM / RETROPERITONEUM: No free air or fluid. Increased density of the mesenteric fat in the right lower quadrant anteriorly as seen on image 44, associated with mildly prominent lymph nodes. BONES: Multilevel severe degenerative changes of the thoracolumbar spine, particularly at L1-L2. Compression fractures of T11-T12 status post kyphoplasty. Prior laminectomies at L3-L4 and L4-L5. Neurostimulator or bone stimulator lead partially visualized. Bipolar left hip prosthesis SOFT TISSUES: Unremarkable. IMPRESSION: 1. Findings may reflect mild ascending colitis. No abscess formation. 2. Diffuse pneumobilia may reflect prior sphincterotomy or prior surgery not well evaluated in this examination. An enterobiliary fistula could result in a similar finding in the proper setting. 3. Bilateral indeterminate renal lesions demonstrate above than water attenuation. Recommend further evaluation with nonemergent CT or MRI abdomen renal mass protocol. Signed by: Dr. Jaxson Barber M.D. on 07/19/2019 6:17 PM Dictated By: WANDA BARBER MD, MD 16 Transcribed By: TAJ on 07/19/191816 COPY TO: DO GREWAL RIBS UNILAT W/CXR- HOPD 2018-04-20 22:36:00 [place] [address] Patient Name: VANDANA AMANDA MR #: [id number] : 1940 Age/Sex: 78/F Req #: [id number] Adm Physician: Ordered by: EUSEBIA WAKEFIELD MD Report #: [id number] [facility] Room/Bed: Procedure: [id number] HOPD/RIBS UNILAT W/CXR- HOPD Exam Date: 04/20/18 [...] Transcribed By: TAJ on 04/20/182237 COPY TO: EUSEBIA WAKEFIELD MD SHOULDER 2+VW LT -HOPD 2018-04-20 22:07:00 [place] [address] Patient Name: VANDANA AMANDA MR #: [id number] : 1940 Age/Sex: 78/F Req #: [id number] [facility] Physician: Ordered by: EUSEBIA WAKEFIELD MD Report #: [id number] [facility] Room/Bed: Procedure: [id number] HOPD/SHOULDER 2+VW LT -HOPD Exam Date: 04/20/18 [...] Transcribed By: TAJ on 04/20/182207 COPY TO: EUSEBIA WAKEFIELD MD HIP 2 VIEW LT - HOPD 2018-04-20 22:07:00 [place] [address] Patient Name: VANDANA AMANDA MR #: [id number] : 1940 Age/Sex: 78/F Req #: [id number] Adm Physician: Ordered by: EUSEBIA WAKEFIELD MD Report #: [id number] [facility] Room/Bed: Procedure: [id number] HOPD/HIP 2 VIEW LT - HOPD Exam [...] Transcribed By: TAJ on 04/20/182206 COPY TO: EUSEBIA WAKEFIELD MD
--- NOTE | 2020-04-16 16:50 | Diagnostic Imaging Report ---
EXAM: CT Abdomen and Pelvis WITHOUT contrast INDICATION: Abdominal pain. COMPARISON: CT of the abdomen and pelvis on 02/10/2020 and 07/19/2019. TECHNIQUE: Abdomen and pelvis were scanned utilizing a multidetector helical scanner from the lung base to the pubic symphysis without administration of IV contrast. Absence of intravenous contrast decreases sensitivity for detection of focal lesions and vascular pathology. Coronal and sagittal reformations were obtained. Routine protocol was performed. IV CONTRAST: None ORAL CONTRAST: None COMPLICATIONS: None RADIATION DOSE: Total DLP: 372.39 mGy*cm Estimated effective dose: (DLP x 0.015 x size factor) mSv CTDIvol has been reviewed. It is below the limits set by the Radiation Protocol Committee (RPC). Dose modulation, iterative reconstruction, and/or weight based adjustment of the mA/kV was utilized to reduce the radiation dose to as low as reasonably achievable. FINDINGS: LINES and TUBES: None. LOWER THORAX: Partially imaged 5 mm nodule in the left lower lobe is unchanged. There is atherosclerotic ossification of the coronary vessels. HEPATOBILIARY: No focal hepatic lesions. No biliary ductal dilation. GALLBLADDER: Not visualized, likely surgically absent. SPLEEN: No splenomegaly. PANCREAS: No focal masses or ductal dilatation. ADRENALS: No adrenal nodules KIDNEYS/URETERS: No hydronephrosis. Multiple bilateral cysts are unchanged. No stones. GI TRACT: There are multiple round and oval-shaped hyperdensities in the distal small bowel and throughout the colon particularly in the cecum which most likely represent ingested pills. No abnormal distention, wall thickening, or evidence of bowel obstruction. The appendix is not visualized in isolation, however there are no secondary signs of appendicitis. PELVIC ORGANS/BLADDER: Evaluation of the pelvic structures is limited by beam hardening artifact from left hip prosthesis. The visualized bladder and pelvic structures are unchanged. LYMPH NODES: No lymphadenopathy. VESSELS: The abdominal aorta and its major abdomen and pelvic branches have normal caliber with marked atherosclerotic calcification. PERITONEUM / RETROPERITONEUM: No free air or fluid. BONES: The bones are diffusely osteopenic. There is multilevel degenerative changes of the thoracolumbar spine. There are vertebroplasty changes at T11 and T12. Left hip prosthesis unchanged. Multiple calcified granulomas in the bilateral gluteal region are unchanged. SOFT TISSUES: Unremarkable. IMPRESSION: 1. No acute abdominopelvic abnormality identified. No evidence of bowel obstruction or inflammation. 2. Multiple round and oval shaped hyperdensities in the distal small bowel and throughout the colon, particularly in the cecum which most likely represents ingested pills. Consider medication reconsideration to evaluate the amount of pills patient usually ingests. 3. No interval change in partially imaged groundglass nodule in the left lower lobe. If patient is high risk for lung cancer, consider follow-up chest CT in 12 months. Signed by: Shoaib Weaver MD on 04/16/2020 4:47 PM
[2020-04-16 17:23] VITALS: BP 160/74
[2020-04-16] MEDS ORDERED: ONDANSETRON ODT8 MG PO (17:27)
== END 2020-04-16 17:45 | disposition home or self-care (01) ==
LOC: FSED 15:30
DX: R10.84 Generalized abdominal pain (principal); K31.84 Gastroparesis; K59.00 Constipation, unspecified; I10 Essential (primary) hypertension; R91.8 Other nonspecific abnormal finding of lung field; I50.9 Heart failure, unspecified; J44.9 Chronic obstructive pulmonary disease, unspecified; K21.9 Gastro-esophageal reflux disease without esophagitis; G89.29 Other chronic pain; F11.90 Opioid use, unspecified, uncomplicated
CPT/HCPCS: 74176; 80053; 81003; 85025; 99284; J2405; 93005

== ENCOUNTER 2020-11-20 13:42 | Emergency (ER) | payer MEDICARE ==
[~2020-11-20] VITALS: Ht 152.4 cm; Wt 57.8 kg
[~2020-11-20 13:42] MED LIST changes: +ONDANSETRON ODT8 MG PO
[2020-11-20] MEDS ORDERED: SODIUM CHLORIDE 0.9% 1000ML 1,000 ML IV STA (14:28)
[2020-11-20] MEDS ORDERED: FAMOTIDINE 20 MG/2 ML VIAL IV ONE ×2 (14:30→15:05)
[2020-11-20] MEDS ORDERED: ONDANSETRON HCL INJ 2MG/ML 2ML 2 MG/ML VIAL IV ONE (14:30)
[2020-11-20] MEDS ORDERED: LABETALOL HCL 5 MG/ML 20ML VIAL IV STA (15:00)
[2020-11-20] MEDS ORDERED: ONDANSETRON HCL INJ 2MG/ML 2ML 2 MG/ML VIAL ONE (15:04)
[2020-11-20] MEDS ORDERED: SODIUM CHLORIDE 0.9% 1000ML 1,000 ML ONE (15:05)
[2020-11-20] MEDS ORDERED: SODIUM CHLORIDE 0.9% 50ML 50 ML ONE (15:29)
[2020-11-20] MEDS ORDERED: IOPAMIDOL 370 MG/ML 200 ML INFUS..BTL INJ ONE (15:30)
[2020-11-20] MEDS ORDERED: DICYCLOMINE HCL10 MG PO (16:33)
[2020-11-20] MEDS ORDERED: TIZANIDINE HCL4 M1 PO (16:33)
[2020-11-20] MEDS ORDERED: PROTONIX20 MG PO (16:33)
[2020-11-20] MEDS ORDERED: MAGNESIUM CITR296 ML PO (20:19)
== END 2020-11-20 19:06 | disposition home or self-care (01) ==
LOC: FSED 14:04
DX: R10.32 Left lower quadrant pain (principal); R11.0 Nausea; K59.00 Constipation, unspecified; I10 Essential (primary) hypertension; J44.9 Chronic obstructive pulmonary disease, unspecified; I50.9 Heart failure, unspecified; K21.9 Gastro-esophageal reflux disease without esophagitis; G89.29 Other chronic pain
CPT/HCPCS: 74177; 80048; 80076; 81003; 85025; 96374; 96375; 99284; J2405; J7030; Q9967

== ENCOUNTER 2020-12-13 18:06 | Emergency (ER) | payer MEDICARE ==
[~2020-12-13] VITALS: Ht 160 cm; Wt 57.6 kg
[2020-12-13 20:38] LABS: BASOPHILS % 0.3 % (0.0-1.0); EOSINOPHILS # (AUTO) 0.5 (0.0-0.4); EOSINOPHILS % 5.9 % (0.0-6.0); HEMATOCRIT 35.1 % (34.2-44.1); HEMOGLOBIN 12.1 g/dL (12.0-16.0); LYMPHOCYTES # (AUTO) 1.7 (1.0-3.2); LYMPHOCYTES % 21.4 % (18.0-39.1); MEAN CORPUSCULAR HEMOGLOBIN 30.9 pg (28-32); MEAN CORPUSCULAR HGB CONC 34.5 g/dL (31-35); MEAN CORPUSCULAR VOLUME 89.5 fL (81-99); MONOCYTES # (AUTO) 0.6 (0.2-0.8); PLATELET COUNT 217 x10e3/uL (140-360); RED BLOOD COUNT 3.92 x10e6/uL (3.6-5.1); RED CELL DISTRIBUTION WIDTH 11.8 % (11.7-14.4)
[2020-12-13 20:48] LABS: INR 0.84; PROTHROMBIN TIME 12.1 seconds (11.9-14.5)
[2020-12-13 20:58] LABS: ALBUMIN 4.2 g/dL (3.5-5.0); ALBUMIN/GLOBULIN RATIO 1.6 (0.8-2.0); ANION GAP 15.5 mmol/L (8-16); CALCIUM 9.8 mg/dL (8.4-10.2); CREATININE, SERUM 1.43 mg/dL (0.57-1.11); POTASSIUM 3.5 mmol/L (3.5-5.1)
[2020-12-13 21:00] LABS: CLARITY,URINE CLEAR (CLEAR); COLOR,URINE YELLOW (YELLOW); KETONES,URINE NEGATIVE (NEGATIVE); LEUKOCYTE ESTERASE ,URINE NEGATIVE (NEGATIVE); NITRITE,URINE NEGATIVE (NEGATIVE); PROTEIN,URINE DIPSTICK NEGATIVE (NEGATIVE); URINE UROBILINOGEN 0.2 mg/dL (0.2 - 1)
[2020-12-13 21:06] LABS: CREATINE KINASE MB 1.8 ng/mL (0-5.0)
[2020-12-13 21:08] LABS: BACTERIA,URINE RARE /HPF; EPITHELIAL CELLS,URINE RARE /LPF; RBC,URINE 0-5 /HPF (0-5); WBC,URINE (MAN) 0-5 /HPF (0-5)
[2020-12-13] MEDS ORDERED: DIATRIZOATE MEGL/DIATRIZOA SOD 30 ML BTL PO ONE (21:32)
[2020-12-14 00:49] VITALS: BP 140/66
== END 2020-12-14 01:15 | disposition home or self-care (01) ==
LOC: ER 18:09
DX: R10.9 Unspecified abdominal pain (principal); K59.00 Constipation, unspecified; K52.9 Noninfective gastroenteritis and colitis, unspecified; R55 Syncope and collapse; R94.31 Abnormal electrocardiogram [ECG] [EKG]; I10 Essential (primary) hypertension; J44.9 Chronic obstructive pulmonary disease, unspecified; I50.9 Heart failure, unspecified; K21.9 Gastro-esophageal reflux disease without esophagitis
CPT/HCPCS: 36415; 70450; 71045; 74176; 80053; 81001; 82550; 82553; 84484; 85025; 85610; 85730; 93005; 99284

== ENCOUNTER → 2020-12-13 | Outpatient (CLI) | payer MEDICARE ==
[~2020-12-13] MED LIST changes: +DICYCLOMINE HCL10 MG PO; +MAGNESIUM CITR296 ML PO; +PROTONIX20 MG PO; +TIZANIDINE HCL4 M1 PO
== END ==
LOC: CT 17:17
PROVIDERS: ATTEND Internal Medicine Gastroenterology
DX: R10.9 Unspecified abdominal pain (principal)

== ENCOUNTER 2021-08-14 16:06 | Observation (INO) | payer MEDICARE ==
[~2021-08-14] VITALS: Ht 160 cm; Wt 51.7 kg
[2021-08-14] MEDS ORDERED: SODIUM CHLORIDE 0.9% 1000ML 1,000 ML IV STA (16:21)
[2021-08-14] MEDS ORDERED: KETOROLAC TROMETHAMINE 30 MG/ML VIAL IV ONE (16:30)
[2021-08-14] MEDS ORDERED: ONDANSETRON HCL INJ 2MG/ML 2ML 2 MG/ML VIAL IV ONE (16:30)
[2021-08-14] MEDS ORDERED: FAMOTIDINE 20 MG/2 ML VIAL IV NR (16:30)
[2021-08-14] MEDS ORDERED: FAMOTIDINE 20 MG/2 ML VIAL IV ONE (16:43)
[2021-08-14] MEDS ORDERED: SODIUM CHLORIDE 0.9% 1000ML 1,000 ML ONE (16:43)
[2021-08-14] MEDS ORDERED: ONDANSETRON HCL INJ 2MG/ML 2ML 2 MG/ML VIAL ONE (16:44)
[2021-08-14] MEDS ORDERED: KETOROLAC TROMETHAMINE 30 MG/ML VIAL ONE (16:44)
[2021-08-14] MEDS ORDERED: DIPHENHYDRAMINE HCL INJ 50 MG/ML VIAL IV PRN (17:45)
[2021-08-14] MEDS ORDERED: HYDRALAZINE HCL 20 MG/ML VIAL IV PRN (17:45)
[2021-08-14] MEDS ORDERED: ZOLPIDEM TARTRATE 5 MG TAB PO PRN (17:45)
[2021-08-14] MEDS: Morphine 4mg Syringe 4 MG/ML INJ IV PRN (17:50)
[2021-08-14] MEDS ORDERED: HYDRALAZINE HCL 20 MG/ML VIAL ONE (17:58)
[2021-08-14] MEDS ORDERED: Morphine 4mg Syringe 4 MG/ML INJ ONE (17:59)
[2021-08-14 19:45] VITALS: BP 176/73
[2021-08-14] MEDS ORDERED: POLYETHYLENE GLYCOL 3350 17 GM PACK PO PRN (19:45)
[2021-08-14] MEDS ORDERED: ONDANSETRON HCL INJ 2MG/ML 2ML 2 MG/ML VIAL IV PRN (19:45)
[2021-08-14] MEDS ORDERED: METOPROLOL TARTRATE INJ 1 MG/ML VIAL IV PRN (19:45)
[2021-08-14] MEDS ORDERED: ACETAMINOPHEN 325 MG TAB PO PRN (19:45)
[2021-08-14] MEDS: D5.45%NS/KCL 20MEQ 1,000 ML IV SCH (19:45)
[2021-08-14 20:00] VITALS: BP 176/73
[2021-08-14 22:00] VITALS: BP 138/58
[2021-08-14] MEDS ORDERED: [UNRECOGNIZED DRUG - OTHER] PO (23:22)
[2021-08-14] MEDS ORDERED: GABAPENTIN300 MG PO (23:22)
[2021-08-14] MEDS ORDERED: MELOXICAM PO (23:22)
[2021-08-14] MEDS ORDERED: ATORVASTATIN CA20 MG PO (23:25)
[2021-08-14] MEDS ORDERED: escitalopram PO (23:25)
[2021-08-15] VITALS (8 sets, daily range): BP systolic 137–169; BP diastolic 61–71
[2021-08-15] MEDS: Morphine 4mg Syringe 4 MG/ML INJ IV PRN ×5 (00:59→22:55)
[2021-08-15 05:49] LABS: ALBUMIN 3.3 g/dL (3.5-5.0); ALBUMIN/GLOBULIN RATIO 1.7 (0.8-2.0); CALCIUM 8.4 mg/dL (8.4-10.2); CREATININE, SERUM 0.85 mg/dL (0.57-1.11)
[2021-08-15 05:50] LABS: CHOL/HDL RATIO 2.9 (3.0-3.6); MAGNESIUM 2.1 MG/DL (1.3-2.1); PHOSPHORUS 3.5 MG/DL (2.3-4.7)
[2021-08-15 05:52] LABS: BASOPHILS # (AUTO) 0.1 (0.0-0.1); BASOPHILS % 0.7 % (0.0-1.0); EOSINOPHILS # (AUTO) 0.3 (0.0-0.4); EOSINOPHILS % 4.7 % (0.0-6.0); HEMOGLOBIN 11.2 g/dL (12.0-16.0); LYMPHOCYTES # (AUTO) 2.2 (1.0-3.2); LYMPHOCYTES % 31.3 % (18.0-39.1); MEAN CORPUSCULAR HEMOGLOBIN 31.6 pg (28-32); MEAN CORPUSCULAR HGB CONC 33.9 g/dL (31-35); MEAN CORPUSCULAR VOLUME 93.2 fL (81-99); MONOCYTES # (AUTO) 0.7 (0.2-0.8); NEUTROPHILS # (AUTO) 3.6 (2.1-6.9); PLATELET COUNT 300 x10e3/uL (140-360); RED BLOOD COUNT 3.54 x10e6/uL (3.6-5.1); RED CELL DISTRIBUTION WIDTH 12.8 % (11.7-14.4)
[2021-08-15 06:14] LABS: THYROID STIMULATING HORMONE 1.077 uIU/mL (0.350-4.940)
[2021-08-15] MEDS: D5.45%NS/KCL 20MEQ 1,000 ML IV SCH (08:12)
[2021-08-15] MEDS: DOCUSATE SODIUM 100 MG CAP PO SCH ×2 (12:01→16:43)
[2021-08-15] MEDS ORDERED: PROPOFOL IV EMULSION 10 MG/ML 20 ML VIAL ONE (12:16)
[2021-08-15] MEDS ORDERED: LIDOCAINE HCL 2% LOCAL INJ 5 ML SDV VIAL INJ ONE (12:16)
[2021-08-15] MEDS: GABAPENTIN 300 MG CAP PO SCH (16:43)
[2021-08-15] MEDS: LOSARTAN POTASSIUM 100 MG TAB PO SCH (16:43)
[2021-08-15] MEDS: BUSPIRONE HCL 5 MG TAB PO SCH ×2 (16:43→20:17)
[2021-08-15] MEDS: SUCRALFATE 1 GM TAB PO SCH ×2 (16:43→20:17)
[2021-08-15] MEDS: FUROSEMIDE 20 MG TAB PO SCH (16:43)
[2021-08-15] MEDS ORDERED: ATORVASTATIN 40 MG TAB PO SCH (21:00)
[2021-08-16 01:01] VITALS: BP 133/64
[2021-08-16] MEDS: Morphine 4mg Syringe 4 MG/ML INJ IV PRN ×3 (03:00→12:12)
[2021-08-16 05:25] VITALS: BP 136/54
[2021-08-16 05:36] LABS: BASOPHILS # (AUTO) 0.1 (0.0-0.1); BASOPHILS % 0.8 % (0.0-1.0); EOSINOPHILS # (AUTO) 0.7 (0.0-0.4); EOSINOPHILS % 9.4 % (0.0-6.0); HEMATOCRIT 35.7 % (34.2-44.1); HEMOGLOBIN 11.7 g/dL (12.0-16.0); LYMPHOCYTES # (AUTO) 2.5 (1.0-3.2); LYMPHOCYTES % 32.5 % (18.0-39.1); MEAN CORPUSCULAR HEMOGLOBIN 30.8 pg (28-32); MEAN CORPUSCULAR HGB CONC 32.8 g/dL (31-35); MEAN CORPUSCULAR VOLUME 93.9 fL (81-99); MONOCYTES # (AUTO) 0.6 (0.2-0.8); MONOCYTES % 8.1 % (4.4-11.3); NEUTROPHILS # (AUTO) 3.7 (2.1-6.9); NEUTROPHILS % 48.9 % (38.7-80.0); PLATELET COUNT 313 x10e3/uL (140-360)
[2021-08-16 06:39] LABS: ANION GAP 13.3 mmol/L (8-16); CREATININE, SERUM 0.73 mg/dL (0.57-1.11); POTASSIUM 3.3 mmol/L (3.5-5.1)
[2021-08-16 07:26] VITALS: BP 163/66
[2021-08-16] MEDS ORDERED: PANTOPRAZOLE SOD 40 MG TABEC PO SCH ×2 (07:30→21:00)
[2021-08-16] MEDS: DOCUSATE SODIUM 100 MG CAP PO SCH (08:03)
[2021-08-16] MEDS: SUCRALFATE 1 GM TAB PO SCH ×2 (08:03→12:05)
[2021-08-16] MEDS: BUSPIRONE HCL 5 MG TAB PO SCH (08:03)
[2021-08-16] MEDS: LOSARTAN POTASSIUM 100 MG TAB PO SCH (08:04)
[2021-08-16] MEDS: GABAPENTIN 300 MG CAP PO SCH (08:04)
[2021-08-16] MEDS: FUROSEMIDE 20 MG TAB PO SCH (08:04)
[2021-08-16 08:15] VITALS: BP 163/66
[2021-08-16] MEDS ORDERED: PROTONIX20 MG PO (11:14)
[2021-08-16 11:24] VITALS: BP 143/56
[2021-08-16] MEDS ORDERED: ONDANSETRON HCL 4 MG ORAL DISINTEGRATING TAB PO PRN (11:30)
[2021-08-16] MEDS ORDERED: POTASSIUM CHLORIDE 20 MEQ TAB CR PO ONE (11:35)
== END 2021-08-16 12:59 | disposition home or self-care (01) ==
LOC: FSED 16:15 → ERHOLD 17:48 → MED/SURG 19:35
PROVIDERS: ADMIT Internal Medicine; ATTEND Internal Medicine
DX: K29.70 Gastritis, unspecified, without bleeding (principal); G89.29 Other chronic pain; J44.9 Chronic obstructive pulmonary disease, unspecified; F41.9 Anxiety disorder, unspecified; Z96.649 Presence of unspecified artificial hip joint; K46.9 Unspecified abdominal hernia without obstruction or gangrene; E87.6 Hypokalemia; F32.A Depression, unspecified; K44.9 Diaphragmatic hernia without obstruction or gangrene; Z20.822 Contact with and (suspected) exposure to COVID-19; I50.9 Heart failure, unspecified; K21.9 Gastro-esophageal reflux disease without esophagitis; I11.0 Hypertensive heart disease with heart failure
CPT/HCPCS: 36415 ×2; 43239; 74176; 80048; 80053 ×2; 80061; 81003; 83036; 83690; 83735 ×2; 84100; 84443; 85025 ×3; 88305; 88312; 93005; 94799; 96374; 96375; 97161; 99284; C9113 ×2; G0378 ×3; J0360; J1885; J2001; J2270 ×3; J2405 ×2; J2704; J7030; U0002